=== PATIENT | male | born 1930 | race African-American/Black ===

== ENCOUNTER 2018-07-10 11:58 | Emergency (ER) | payer OTHER, MEDICARE ==
--- NOTE | 2018-07-10 12:50 | ER Document Report ---
ED Medical Screen (RME) - General Chief Complaint: Chest Pain Stated Complaint: SHORTNESS OF BREATH Time Seen by Provider: 07/10/18 12:07 Mode of Arrival: Wheelchair Information source: Patient, Relative, [facility] Records Notes: 87-year-old male presents with complaint of fatigue, weakness and nausea. He states the symptoms started just prior to arrival. He is concerned because he reports an MS with similar symptoms. Patient has a history of cardiac stent placement. I have greeted and performed a rapid initial assessment of this patient. A comprehensive ED assessment and evaluation of the patient, analysis of test results and completion of medical decision making process we will be contacted by additional ED providers. PHYSICAL EXAMINATION: Vital signs reviewed GENERAL: no acute distress. LUNGS: No respiratory distress Musculoskeletal: Normal range of motion NEUROLOGICAL: Normal speech PSYCH: Normal mood, normal affect. SKIN: Warm, Dry, normal turgor, no rashes or lesions noted. TRAVEL OUTSIDE OF THE [place] IN LAST 30 DAYS: No - HPI Onset: Just prior to arrival Onset/Duration: Sudden Quality of pain: No pain Associated Symptoms: Nausea, Weakness Exacerbated by: Denies Relieved by: Denies Similar symptoms previously: Yes Recently seen / treated by doctor: No - Related Data Smoking: Non-smoker Frequency of alcohol use: None Drug Abuse: None Allergies/Adverse Reactions: aspirin [Aspirin] Allergy (Mild, Verified 11/28/12 14:59) stomach upset Past Medical History - Past Medical History Cardiac Medical History: Reports: Hx Coronary Artery Disease, Hx Heart Attack, Hx Hypertension Denies: Hx Atrial Fibrillation, Hx Congestive Heart Failure, Hx Hypercholesterolemia, Hx Peripheral Vascular Disease, Hx Heart Murmur Pulmonary Medical History: Denies: Hx Asthma, Hx Tuberculosis Neurological Medical History: Denies: Hx Cerebrovascular Accident, Hx Seizures Endocrine Medical History: Denies: Hx Graves' Disease, Hx Hyperthyroidism, Hx Hypothyroidism Renal/ Medical History: Reports: Hx Benign Prostatic Hyperplasia, Hx Kidney Stones. Denies: Hx End Stage Renal Disease, Hx Peritoneal Dialysis GI Medical History: Reports: Hx Gastroesophageal Reflux Disease. Denies: Hx Hepatitis, Hx Hiatal Hernia, Hx Ulcer Musculoskeltal Medical History: Reports Hx Arthritis Infectious Medical History: Denies: Hx Hepatitis Past Surgical History: Reports: Hx Cardiac Catheterization, Hx Cardiac Surgery - stents, Hx Coronary Artery Bypass Graft - stent, Hx Coronary Stent - X3. Denies: Hx Appendectomy, Hx Bowel Surgery, Hx Cholecystectomy, Hx Gastric Bypass Surgery, Hx Herniorrhaphy, Hx Open Heart Surgery, Hx Pacemaker, Hx Tonsillectomy - Immunizations Hx Diphtheria, Pertussis, Tetanus Vaccination: Yes Physical Exam - Vital signs Vitals: Temp Pulse Resp BP Pulse Ox 97.4 F 66 14 121/55 L 98 07/10/18 12:02 07/10/18 12:02 07/10/18 12:02 07/10/18 12:02 07/10/18 12:02 Course - Vital Signs Vital signs: Temp Pulse Resp BP Pulse Ox 97.4 F 66 14 121/55 L 98 07/10/18 12:02 07/10/18 12:02 07/10/18 12:02 07/10/18 12:02 07/10/18 12:02 - Laboratory Result Diagrams: 07/10/18 12:33 07/10/18 12:33
--- NOTE | 2018-07-10 12:57 | RADIOLOGY REPORT (SQ) ---
EXAM DESCRIPTION: CHEST SINGLE VIEW COMPLETED DATE/TIME: 07/10/2018 12:44 pm REASON FOR STUDY: chest pain COMPARISON: 05/24/2016 EXAM PARAMETERS: NUMBER OF VIEWS: One view. TECHNIQUE: Single frontal radiographic view of the chest acquired. RADIATION DOSE: NA LIMITATIONS: None. FINDINGS: LUNGS AND PLEURA: No opacities, masses or pneumothorax. No pleural effusion. MEDIASTINUM AND HILAR STRUCTURES: No masses. Contour normal. HEART AND VASCULAR STRUCTURES: Heart normal in size. Normal vasculature. Calcifications of the aort ic knob. BONES: No acute findings. HARDWARE: None in the chest. OTHER: No other significant finding. IMPRESSION: NO ACUTE RADIOGRAPHIC FINDING IN THE CHEST. TECHNICAL DOCUMENTATION: JOB ID: [id number] [a][employer]- All Rights Reserved Reading location - IP/workstation name: [email or web address]
[2018-07-10 12:58] LABS: ABSOLUTE EOSINOPHILS # (AUTO) 0.1 10^3/uL (0.0-0.6); ABSOLUTE LYMPHOCYTES (AUTO) 1.5 10^3/uL (0.5-4.7); ABSOLUTE MONOCYTES (AUTO) 0.4 10^3/uL (0.1-1.4); ABSOLUTE NEUT (AUTO) 3.1 10^3/uL (1.7-8.2); BASOPHILS % (AUTO) 0.5 % (0-2); EOSINOPHILS % (AUTO) 2.9 % (0-6); HEMOGLOBIN 14.3 g/dL (13.5-17.0); LYMPHOCYTES % (AUTO) 29.3 % (13-45); MEAN CORPUSCULAR HEMOGLOBIN 32.9 pg (27.0-33.4); MEAN CORPUSCULAR HGB CONC 34.9 g/dL (32.0-36.0); MEAN CORPUSCULAR VOLUME 94 fl (80-97); MONOCYTES % (AUTO) 7.2 % (3-13); PLATELET COUNT 249 10^3/uL (150-450); RED BLOOD COUNT 4.34 10^6/uL (4.35-5.55); RED CELL DISTRIBUTION WIDTH 12.9 % (11.5-14.0); SEGMENTED NEUTROPHILS % (AUTO) 60.1 % (42-78); TOTAL CELLS COUNTED % (AUTO) 100 %; WHITE BLOOD COUNT 5.1 10^3/uL (4.0-10.5)
[2018-07-10 13:03] LABS: ALANINE AMINOTRANSFERASE 26 U/L (21-72); ALBUMIN 4.4 g/dL (3.5-5.0); ALKALINE PHOSPHATASE 52 U/L (38-126); ANION GAP 12 (5-19); ASPARTATE AMINO TRANSFERASE 39 U/L (17-59); BILIRUBIN,DIRECT 0.5 mg/dL (0.0-0.4); BILIRUBIN,TOTAL 0.9 mg/dL (0.2-1.3); BLOOD UREA NITROGEN 17 mg/dL (7-20); CALCIUM 9.4 mg/dL (8.4-10.2); CARBON DIOXIDE 26 mmol/L (22-30); CHLORIDE 102 mmol/L (98-107); CREATINE KINASE 321 U/L (55-170); GLUCOSE 206 mg/dL (75-110); POTASSIUM 3.6 mmol/L (3.6-5.0); SODIUM 139.5 mmol/L (137-145); TOTAL PROTEIN 7.2 g/dL (6.3-8.2)
[2018-07-10 13:15] LABS: CREATINE KINASE MB 4.47 ng/mL (<4.55); TROPONIN I < 0.012 ng/mL
[2018-07-10] MEDS ORDERED: NORMAL SALINE 1000 ML 1,000 ML IV ONE (13:59)
--- NOTE | 2018-07-10 14:09 | ER Document Report ---
ED General - General Chief Complaint: Chest Pain Stated Complaint: SHORTNESS OF BREATH Time Seen by Provider: 07/10/18 12:07 Mode of Arrival: Wheelchair TRAVEL OUTSIDE OF THE [place] IN LAST 30 DAYS: No - HPI Notes: Patient is an 87-year-old male with a history of coronary artery disease and hypertension with stent placement 18 years ago who presents to the ED complaining of generalized weakness that lasted for about 20 minutes when he was [place]. Patient states that he had symptoms like this before when he was dehydrated and also something similar when he had his NH 18 years ago. Patient states that when he had his NH 18 years ago he also had associated dizziness and nausea which he does not have at this time. He has no other concerns or complaints. He has been eating and drinking, but does not believe he is drinking enough. He is urinating normally and having normal bowel movements. Denies any other significant cardiopulmonary medical history. Denies any headache, fever, head injury, neck pain, changes in vision/speech/ mentation/hearing, URI, sore throat, chest pain, palpitations, syncope, cough, shortness of breath, wheeze, dyspnea, abdominal pain, nausea/vomiting/diarrhea, urinary retention, dysuria, hematuria, loss of control of bowel or bladder, numbness/tingling, saddle anesthesia, muscle paralysis/weakness, or rash. - Related Data Allergies/Adverse Reactions: aspirin [Aspirin] Allergy (Mild, Verified 11/28/12 14:59) stomach upset Past Medical History - General Information source: Patient, Relative, [facility] Records - Social History Smoking Status: Former Smoker Frequency of alcohol use: None Drug Abuse: None Family History: Hypertension Patient has suicidal ideation: No Patient has homicidal ideation: No - Past Medical History Cardiac Medical History: Reports: Hx Coronary Artery Disease, Hx Heart Attack, Hx Hypertension Denies: Hx Atrial Fibrillation, Hx Congestive Heart Failure, Hx Hypercholesterolemia, Hx Peripheral Vascular Disease, Hx Heart Murmur Pulmonary Medical History: Denies: Hx Asthma, Hx Tuberculosis Neurological Medical History: Denies: Hx Cerebrovascular Accident, Hx Seizures Endocrine Medical History: Denies: Hx Graves' Disease, Hx Hyperthyroidism, Hx Hypothyroidism Renal/ Medical History: Reports: Hx Benign Prostatic Hyperplasia, Hx Kidney Stones. Denies: Hx End Stage Renal Disease, Hx Peritoneal Dialysis GI Medical History: Reports: Hx Gastroesophageal Reflux Disease. Denies: Hx Hepatitis, Hx Hiatal Hernia, Hx Ulcer Musculoskeletal Medical History: Reports Hx Arthritis Infectious Medical History: Denies: Hx Hepatitis Past Surgical History: Reports: Hx Cardiac Catheterization, Hx Cardiac Surgery - stents, Hx Coronary Artery Bypass Graft - stent, Hx Coronary Stent - X3. Denies: Hx Appendectomy, Hx Bowel Surgery, Hx Cholecystectomy, Hx Gastric Bypass Surgery, Hx Herniorrhaphy, Hx Open Heart Surgery, Hx Pacemaker, Hx Tonsillectomy - Immunizations Hx Diphtheria, Pertussis, Tetanus Vaccination: Yes Review of Systems - Review of Systems -: Yes All other systems reviewed and negative Physical Exam - Vital signs Vitals: Temp Pulse Resp BP Pulse Ox 97.4 F 66 14 121/55 L 98 07/10/18 12:02 07/10/18 12:02 07/10/18 12:02 07/10/18 12:02 07/10/18 12:02 - Notes Notes: PHYSICAL EXAMINATION: GENERAL: Well-appearing, well-nourished and in no acute distress. A&Ox4. Answers questions appropriately. HEAD: Atraumatic, normocephalic. EYES: Pupils equal round and reactive to light, extraocular movements intact, sclera anicteric, conjunctiva are normal. No nystagmus. ENT: Nares patent and without discharge. oropharynx clear without exudates. No tonsilar hypertrophy or erythema. Moist mucous membranes. NECK: Normal range of motion, supple without lymphadenopathy. No rigidity. LUNGS: Breath sounds clear to auscultation bilaterally and equal. No wheezes rales or rhonchi. HEART: Regular rate and rhythm without murmurs, rubs, gallops. ABDOMEN: Soft, nontender, nondistended abdomen. No guarding, no rebound. No masses appreciated. Normal bowel sounds present. No CVA tenderness bilaterally. Musculoskeletal: FROM to passive/active. Strength 5+/5. Cristhian neg. No asymmetry to LE's. Extremities: No cyanosis, clubbing, or edema b/l. Peripheral pulses 2+. Capillary refill less than 3 seconds. NEUROLOGICAL: Normal speech, normal gait. PSYCH: Normal mood, normal affect. SKIN: Warm, Dry, normal turgor, no rashes or lesions noted. Course - Re-evaluation Re-evalutation: 07/10/18 14:12 Vitals are currently acceptable. Initial lab work unremarkable. Patient states that he is feeling "back to normal." No new concerns or complaints. We will give him IV fluids and recheck a troponin. 07/10/18 17:14 Patient is an afebrile, well-hydrated 37-year-old male who presents to the ED with nonspecific general weakness (since resolved). Vitals are acceptable without any significant tachycardia, tachypnea, or hypoxia. PE is otherwise unremarkable. Patient is nontoxic-appearing and is tolerating p.o. without any difficulties. Pt is currently asymptomatic. CBC, CMP, EKG/cardiac enzymes 2, chest x-ray are all unremarkable for any acute pathology (reviewed labs with Dr. Reynolds). Patient has a heart score of 3, Wells score of 0. Patient does not have any chest pain, dyspnea, or shortness of breath. Patient's presentation and symptomatology creates low suspicion for ACS, PE, pneumothorax , pericarditis, dissection, respiratory compromise, severe dehydration, sepsis, meningitis, or other systemic emergent condition at this time. Patient is aware that his condition can change from initial presentation and he needs to monitor symptoms closely and seek medical attention for any acute changes. Pt is feeling better and would like to go home. Recommend conservative measures for symptoms. Recheck with your PCM in 2-3 days. Consider consult with Cardiology. Return to the ED with any worsening/concerning symptoms otherwise as reviewed in discharge. Patient is in agreement. - Vital Signs Vital signs: Temp Pulse Resp BP Pulse Ox 97.4 F 66 17 146/75 H 96 07/10/18 12:02 07/10/18 12:02 07/10/18 16:01 07/10/18 16:01 07/10/18 16:01 - Laboratory Result Diagrams: 07/10/18 12:33 07/10/18 12:33 Laboratory results interpreted by me: 07/10/18 07/10/18 12:33 12:33 RBC 4.34 L Est GFR (Non-Af Amer) 58 L Glucose 206 H Direct Bilirubin 0.5 H Creatine Kinase 321 H Discharge - Discharge Clinical Impression: General weakness Condition: Stable Disposition: HOME, SELF-CARE Additional Instructions: Maintain adequate fluid and food intake Take home medications as directed Low sodium/fat diet Monitor blood pressure daily and keep a log Monitor symptoms for any acute changes Recheck with your PCM in 2-3 days Consider a follow-up with cardiology Return to the ED with any worsening symptoms and/or development of fever, headache, chest pain, palpitations, syncope, shortness of breath, trouble breathing, abdominal pain, n/v/d, blood in stool/urine, loss of control of bowel /bladder, urinary retention, muscle weakness/paralysis, numbness/tingling, or other worsening symptoms that are concerning to you. Forms: Elevated Blood Pressure Referrals: JANAE HIDALGO MD [ACTIVE STAFF] - Follow up as needed
[2018-07-10 17:46] VITALS: BP 148/83
--- NOTE | 2018-07-10 18:55 | EKG REPORT ---
SEVERITY:- ABNORMAL ECG - SINUS RHYTHM PROBABLE LEFT ATRIAL ABNORMALITY LVH WITH IVCD, LAD AND SECONDARY REPOL ABNRM VS ISCHEMIC CHANGES : Confirmed by: Myles Stewart 10-Jul-2018 18:54:47
--- NOTE | 2018-07-12 19:53 | EKG REPORT ---
SEVERITY:- ABNORMAL ECG - SINUS RHYTHM FIRST DEGREE AV BLOCK PROBABLE LEFT ATRIAL ABNORMALITY LEFT BUNDLE BRANCH BLOCK : Confirmed by: Bhumi Lyon MD 12-Jul-2018 19:52:16
== END 2018-07-10 17:30 | disposition home or self-care (01) ==
LOC: ER 11:58
DX: R53.1 Weakness (principal); R07.9 Chest pain, unspecified; R06.02 Shortness of breath; I10 Essential (primary) hypertension; Z88.6 Allergy status to analgesic agent; Z95.1 Presence of aortocoronary bypass graft; I25.2 Old myocardial infarction; I25.10 Atherosclerotic heart disease of native coronary artery without angina pectoris
CPT/HCPCS: 93005; 99285; 96360; 36415; 82553; 82550; 85025; 80053; 84484; 71045; 93010; J7030